=== PATIENT | male | born 1980 | race Caucasian/White ===

== ENCOUNTER 2020-11-07 22:03 | Emergency (ER) | payer SELFPAY ==
[~2020-11-07] VITALS: Ht 167.6 cm; Wt 90.9 kg
[2020-11-07 22:57] VITALS: BP 145/94
[2020-11-07] MEDS ORDERED: SULF1TAB41 PO (23:04)
[2020-11-07] MEDS ORDERED: CEPH500C3 PO (23:04)
== END 2020-11-07 23:16 | disposition home or self-care (01) ==
LOC: EMS 22:06
DX: F15.10 Other stimulant abuse, uncomplicated (principal)
CPT/HCPCS: 99283; Z7502

== ENCOUNTER 2021-01-23 03:54 | Emergency (ER) | payer MEDICAID ==
[~2021-01-23] VITALS: Ht 167.6 cm; Wt 180.0 kg
[~2021-01-23 03:54] MED LIST: CEPH500C3 PO; SULF1TAB41 PO
[2021-01-23] MEDS ORDERED: LORazepam 1 MG TABLET PO ONE (04:30)
[2021-01-23] MEDS ORDERED: PERMETHRIN 5% 60 GM CREAM TP ONE (04:30)
[2021-01-23 05:09] VITALS: BP 138/76
== END 2021-01-23 05:45 | disposition home or self-care (01) ==
LOC: EMS 03:57
DX: F15.10 Other stimulant abuse, uncomplicated (principal); B86 Scabies; Z79.899 Other long term (current) drug therapy
CPT/HCPCS: 99283

== ENCOUNTER 2022-02-26 22:15 | Emergency (ER) | payer MEDICAID, OTHER ==
[~2022-02-26 22:15] MED LIST changes: +CEPH-558 PO; -CEPH500C3 PO
[2022-02-27] VITALS: BP 141/79
[2022-02-27] MEDS ORDERED: IBUPROFEN 600 MG TABLET PO ONE
[2022-02-27] MEDS ORDERED: CEPHALEXIN MONOHYDRATE 500 MG CAPSULE PO ONE
[2022-02-27] MEDS: PERTUSS(ACELL),DIPH,TET VAC/PF 0.5 ML SYRINGE IM. ONE ×2 (00:02→00:06)
== END 2022-02-27 01:10 ==
LOC: EMS 22:18
DX: S91.331A Puncture wound without foreign body, right foot, initial encounter (principal); F15.90 Other stimulant use, unspecified, uncomplicated; F11.90 Opioid use, unspecified, uncomplicated; Z79.899 Other long term (current) drug therapy; W25.XXXA Contact with sharp glass, initial encounter; Y93.89 Activity, other specified; Y92.89 Other specified places as the place of occurrence of the external cause; Y99.8 Other external cause status
CPT/HCPCS: 90471; 90715; 99283